=== PATIENT | male | born 1935 | race Caucasian/White ===

== ENCOUNTER → 2024-02-13 11:00 | Outpatient (REF) | payer MEDICARE, OTHER, SELFPAY ==
[2024-02-13 12:36] LABS: % Basophils 0.5 % (0-2); % Eosinophils 1.3 % (0-6); % Immature Granulocytes 0.2 % (0-0.5); % Lymphocytes 16.9 % (20.5-51.1); % Monocytes 10.6 % (1.7-9.3); % Neutrophils 70.5 % (42.2-75.2); Absolute Eosinophils 0.1 10^3/uL (0-0.7); Absolute Lymphocytes 0.9 10^3/uL (1.2-3.4); Absolute Monocytes 0.6 10^3/uL (0.1-0.6); Absolute Neutrophils 3.9 10^3/uL (1.4-6.5); Hematocrit 38.7 % (39.0-52.0); Mean Corp Hgb Conc. 33.6 g/dL (33.0-37.0); Mean Corpuscular Hgb 31.5 pg (27.0-31.0); Mean Corpuscular Volume 93.7 fL (80.0-94.0); Mean Platelet Volume 9.2 fL (7.4-10.4); Nucleated Red Blood Cells % 0 % (-); Platelet Count 165 10^3/uL (130-400); Red Blood Cell Count 4.13 10^6/uL (4.70-6.10); Red Cell Dist. Width 13.1 % (11.5-14.5); White Blood Cell Count 5.6 10^3/uL (4.8-10.8)
[2024-02-13 12:37] LABS: Urine Albumin Negative (Neg - Trace); Urine Bilirubin Negative (Negative); Urine Character Clear (Clear); Urine Color Yellow; Urine Glucose Negative (Negative); Urine Ketone Negative (Negative); Urine Leukocyte Trace (Negative); Urine Nitrite Negative (Negative); Urine Occult Blood Negative (Negative); Urine Urobilinogen Negative (Neg - 1+)
[2024-02-13 12:48] LABS: Glycohemoglobin (HgbA1c) 6.2 % (4.0-5.6)
[2024-02-13 13:16] LABS: ALT (SGPT) 25 U/L (0-50); AST (SGOT) 33 U/L (17-59); Albumin 4.3 g/dl (3.5-5.0); Alkaline Phosphatase 53 U/L (38-126); Blood Urea Nitrogen 19 mg/dl (9-20); Calcium 9.6 mg/dl (8.4-10.2); Carbon Dioxide 27 mmol/L (22-30); Chloride 99 mmol/L (98-107); Glucose 92 mg/dl (70-99); HDL Cholesterol 78 mg/dl; Iron 139 ug/dl (49-181); LDL Cholesterol, Calculated 74 mg/dl; Potassium 4.8 mmol/L (3.5-5.1); Sodium 136 mmol/L (135-145); Total Bilirubin 0.7 mg/dl (0.2-1.3); Total Cholesterol 170 mg/dl (50-199); Total Protein 6.6 g/dl (6.3-8.2); Triglyceride 92 mg/dl (10-149); Very Low Density Lipoprotein 18 mg/dl (0-30); eGFR > 60.00
[2024-02-13 13:25] LABS: Percent Saturation 50 % (20-50); Total Iron Binding Capacity 277 ug/dl (261-462)
[2024-02-13 14:05] LABS: Vitamin B12 983 pg/ml (239-931)
[2024-02-13 14:52] LABS: Urine Red Blood Cell 0-2 /HPF (0-2)
[2024-02-13 14:53] LABS: Urine White Cell 21-25 /HPF (0-5)
[2024-02-13 14:54] LABS: Urine Bacteria Few (Negative)
== END ==
LOC: HWLAB 11:00
PROVIDERS: ATTENDING PHYSICIAN Student in an Organized Health Care Education/Training Program
DX: K21.9 Gastro-esophageal reflux disease without esophagitis (principal); E78.00 Pure hypercholesterolemia, unspecified; G62.9 Polyneuropathy, unspecified; E53.8 Deficiency of other specified B group vitamins; R73.03 Prediabetes; Z86.39 Personal history of other endocrine, nutritional and metabolic disease; R35.0 Frequency of micturition; N40.1 Benign prostatic hyperplasia with lower urinary tract symptoms
CPT/HCPCS: 36415; 80053; 80061; 81003; 81015; 82607; 82728; 83036; 83540; 83550; 85025; 87077; 87086; 87186

== ENCOUNTER 2024-06-20 23:42 | Observation (INO) | payer MEDICARE, OTHER, SELFPAY ==
[2024-06-20 20:57] VITALS: BP 125/61
[2024-06-20 21:00] VITALS: BP 136/59
[2024-06-20 21:03] VITALS: BP 136/59
[2024-06-20 21:06] VITALS: BMI 25.8
--- NOTE | 2024-06-20 21:24 | ED.GENMED ---
History of Present Illness
General
Chief Complaint: Fall
Source: patient
Exam Limitations: none
Time Seen by Provider: 06/20/24 21:05
History of Present Illness
History of Present Illness:
This is a 88 year old male that comes in by ambulance with c/o Falls. States that he has a history of balance issues. States that he just runs out of strength. States that he feel twice today and it is more a graceful collapse. States that he went
down on his knee's. States that he did not hit his head or have any LOC. States that he does use a walker. Denies any fever, chills, chest pain. SOB, abd pain, nausea, vomiting, diarrhea, headache, dizziness, urinary burning.
Past History
Past History
ED Past Medical History: Cancer (Skin CA), GERD, Hypercholesterolemia and Other (Difficulty with balance, )
ED Past Surgical History: Tonsilectomy and Urological (Vasectomy)
Social History
Tobacco: Non-smoker
Alcohol: Daily ([place] (2-3 oz whiskey) )
Personal:
Living: with family
Review of Systems
Review of Systems
All Other Systems: ROS reviewed and negative except as documented in HPI and ROS
Constitutional: Reports no symptoms; Denies fever or chills
EENT: Reports no symptoms
Respiratory: Reports no symptoms; Denies cough or trouble breathing
Cardiac: Reports no symptoms; Denies chest pain
ABD/GI: Reports no symptoms; Denies abdominal pain, nausea, vomiting or diarrhea
: Reports no symptoms; Denies dysuria, frequency or urgency
Musculoskeletal: Reports no symptoms
Skin: Reports no symptoms
Neurological: Reports no symptoms; Denies dizzy or headache
Psychiatric: Reports no symptoms
Phy Exam
General Physical Exam
General Presentation: well appearing and no apparent distress
General age: appears stated age
General Skin: warm and dry
General Habitus: elderly
General Mental: alert
General Hydration: appears well hydrated
ENT Exam
ENT Exam: TM's normal, pharynx normal and neck supple
Eye Exam
Eye Exam: EOMI
Cardiovascular Exam
Cardiovascular Exam: regular rate/rhythm, no edema and normal peripheral pulses
Pulmonary Exam
Pulmonary Exam: lungs clear, no respiratory distress, no rales, chest non tender, no crackles, no rhonchi, no wheezing and no cough
Gastrointestinal Exam
Gastrointestinal Exam: normal bowel sounds, non tender, soft, no organomegaly, no pulsatile mass and non distended
Musculoskeletal Exam
Musculoskeletal Exam: full ROM, no edema and other (Negative for any cervical neck tenderness or shoulder tenderness. Patient can cross over, Flex elbows, abduct arms move fingers and wrist without discomfort. Negative discomfort with Knee flexion,
inversion or eversion. )
Skin Exam
Skin Exam: normal color, warm/dry, no petechia and other (Bilateral knee abrasions. Negative for tenderness, abrasion noted on the left cheek and left shoulder)
Psychiatric Exam
Psychiatric Exam: normal mood/affect
Course
Orders/Labs/Results
Orders:
Orders
06/20/24 21:23
Electrocardiogram (*1) Urgent
Reason for Study: Fatigue / Weakness
CT Head W/o Iv Contrast Urgent
Comment:
Reason For Exam: Frequent FALLS,
EKG- Treatment ONCE
06/20/24 21:24
0.9% Sodium Chloride 500 ml [Nss] 500 ml IV BOLUS
06/20/24 21:43
Alcohol Urgent
Complete Blood Count/With Diff Urgent
Comprehensive Metabolic Panel Urgent
Troponin I Urgent
06/20/24 22:35
Urinalysis Reflex To Culture Urgent
Date Specimen was Collected: 06/20/24
Time Specimen was Collected: 22:25
Abnormal Lab Results
06/20/24
21:43
RBC 4.01 L 10^6/uL
(4.70-6.10)
Hgb 12.9 L g/dL
(13.0-18.0)
Hct 37.2 L %
(39.0-52.0)
MCH 32.2 H pg
(27.0-31.0)
Absolute Lymphs (auto) 0.9 L 10^3/uL
(1.2-3.4)
Lymphocytes % 16.5 L %
(20.5-51.1)
06/20/24 21:43
06/20/24 21:43
H/H slightly low. Otherwise normal labs. Troponin 0.020, Alcohol 30, Urine negative for infection.
Vital Signs
Initial and Last Documented VS:
Initial Vital Signs
BP
125/61
06/20/24 20:57
Last Documented Vital Signs
Temp Pulse Resp BP Pulse Ox
98.3 F 64 18 136/59 94
06/20/24 21:03 06/20/24 21:03 06/20/24 21:03 06/20/24 21:03 06/20/24 21:03
MDM/Problems Addressed
Differential Diagnosis Includes:
Balance issues, UTI
MDM/Problems Addressed:
This is a 88 year old male that comes in with c/o falling. States that he has fallen twice today and he just can't get up. States that since the ambulance had to come twice they brought him in. Patient states that this is a graceful collapse.
Will check labs, Urine CT head.
Back into see patient. Explained taht his blood work is normal but he does have some alcohol on board. Patient urine is negative for infection. Attempted to get patient OOB to see if he could walk. Patient unable to walk . Placed back in bed and
will admit. Hospitalist notified.
Chronic conditions affecting care:
Balance problems.
Acute Exacerbation and/or Progression of Chronic Illness:
Balance problems.
*Radiology
Radiology exam reviewed: radiology read reviewed (CT head-No evidence of acute intracranial abnormality. )
*Pulse Oximetry
Patient hypoxic: no
*Creative Services Coordinator Interpretation
Rate: Creative Services Coordinator- N/A
*Critical Care Note
Total Time (30-74mins, 75-104mins- exclusive of procedures): Not Applicable
ED Attending Note
-
Portions of this chart may have been created with voice recognition software.� Occasional wrong word or��sound alike� substitutions may have occurred due to the inherent limitations of voice recognition software.
Discharge Plan
Departure
Patient Disposition: Admit
Date of Disposition: 06/20/24
Time of Disposition: :23
Admit to: Med/Surg
Presentation/result/management discussed w/ accepting MD/DO: Hospitalist
Patient with high blood pressure during this ER visit?: Yes
Condition: Good
Discharge Problem:
Frequent falls, Ambulatory dysfunction
Prescriptions:
No Action
simvastatin 20 MG tablet
20 mg PO DAILY
coenzyme [id number] E 1 CAP capsule
1 cap PO DAILY
acetaminophen 325 MG tablet
650 mg PO Q4HPRN PRN (Reason: mild pain/MCCLURE/temp> 100.4F) 0RF
magnesium hydroxide 30 ML suspension
30 ml PO [id number] PRN (Reason: constipation) 0RF
aspirin 325 MG tablet,delayed release (DR/EC)
325 mg PO DAILY Qty: 30 0RF
Rx Instructions:
One daily for 1 month to prevent bloos clots
alum-mag hydroxide-simeth [Mag-Al Plus] 30 ML suspension
30 ml PO Q4HPRN PRN (Reason: indigestion) 0RF
oxycodone 5 MG tablet
5 mg PO Q4HPRN PRN (Reason: mild pain) Qty: 30 0RF
Rx Instructions:
1 every 4 hours as needed for pain
Sent to [facility]
celecoxib [Celebrex] 100 MG capsule
200 mg PO DAILY PRN (Reason: mild pain) Qty: 30 0RF
Rx Instructions:
One daily for pain as needed
Sent to [facility]
Referrals:
Elizabeth Barrera MD [Family Provider] -
Interventions
Interventions:
*Risk Screen - Suicide Last Done: 06/20/24 21:04
*General Assessment Last Done: 06/20/24 21:04
*Neglect/Abuse Screening Last Done: 06/20/24 21:04
ED-Musculoskeletal Assessment Last Done: 06/20/24 21:05
ED- Neurological Assessment Last Done: 06/20/24 21:05
ED-Skin Assessment Last Done: 06/20/24 21:05
Discharge Date and Time
Print Language: SOUTH SUDANESE
[2024-06-20] MEDS: NSS 500 IV (21:45)
[2024-06-20 21:46] VITALS: BP 143/70
[2024-06-20 21:52] LABS: % Basophils 0.7 % (0-2); % Eosinophils 1.5 % (0-6); % Immature Granulocytes 0.2 % (0-0.5); % Lymphocytes 16.5 % (20.5-51.1); % Monocytes 9.2 % (1.7-9.3); % Neutrophils 71.9 % (42.2-75.2); Absolute Eosinophils 0.1 10^3/uL (0-0.7); Absolute Lymphocytes 0.9 10^3/uL (1.2-3.4); Absolute Monocytes 0.5 10^3/uL (0.1-0.6); Absolute Neutrophils 3.8 10^3/uL (1.4-6.5); Hematocrit 37.2 % (39.0-52.0); Hemoglobin 12.9 g/dL (13.0-18.0); Mean Corp Hgb Conc. 34.7 g/dL (33.0-37.0); Mean Corpuscular Hgb 32.2 pg (27.0-31.0); Mean Corpuscular Volume 92.8 fL (80.0-94.0); Nucleated Red Blood Cells % 0 % (-); Platelet Count 149 10^3/uL (130-400); Red Blood Cell Count 4.01 10^6/uL (4.70-6.10); Red Cell Dist. Width 12.9 % (11.5-14.5); White Blood Cell Count 5.3 10^3/uL (4.8-10.8)
[2024-06-20 22:00] VITALS: BP 169/73
[2024-06-20 22:07] LABS: ALT (SGPT) 26 U/L (0-50); AST (SGOT) 35 U/L (17-59); Albumin 4.3 g/dl (3.5-5.0); Alcohol 30 mg/dl; Alkaline Phosphatase 56 U/L (38-126); Blood Urea Nitrogen 17 mg/dl (9-20); Calcium 9.4 mg/dl (8.4-10.2); Carbon Dioxide 25 mmol/L (22-30); Chloride 101 mmol/L (98-107); Estimated Creatinine Clearance 67 ml/min; Glucose 87 mg/dl (70-99); Sodium 138 mmol/L (135-145); Total Bilirubin 0.5 mg/dl (0.2-1.3); Total Protein 6.3 g/dl (6.3-8.2); eGFR > 60.00
[2024-06-20 22:42] LABS: Urine Albumin Negative (Neg - Trace); Urine Bilirubin Negative (Negative); Urine Character Clear (Clear); Urine Color Yellow; Urine Glucose Negative (Negative); Urine Ketone Negative (Negative); Urine Leukocyte Negative (Negative); Urine Nitrite Negative (Negative); Urine Occult Blood Negative (Negative); Urine Urobilinogen Negative (Neg - 1+)
[2024-06-20 23:00] VITALS: BP 133/57
--- NOTE | 2024-06-20 23:42 | HPS.HSE ---
Family Physician
-
Family Physician: Elizabeth Barrera MD
Chief Complaint
-
Frequent Falls
History of Present Illness
Patient is a 88 y/o male past medical history of chronic ambulatory dysfunction with frequent falls, and peripheral neuropathy who presents following two falls today. Patient reports he uses a walker to ambulate at baseline. He has fallen several
times over the past year, but today patient fell twice today and had to call EMS both times to get him off the ground prompting EMS to bring him to the emergency department for evaluation. Patient reports chronic lower extremity weakness and
neuropathy which is unchanged. He reports chronic urinary incontinence for the past several years. He denies any injury during today's fall. He denies chest pain, palpitiaton, shortness of breath or dizziness.
Medical History
Past Medical History
Past Medical History: Reports Other
Additional Past Medical History:
Ambulatory Dysfunction with Frequent Falls
Peripheral Neuropathy
GERD
BPH
Hyperlipidemia
Past Surgical History: Reports Other
Additional Past Surgical History:
Vasectomy
Tonsillectomy
Social History
Tobacco: Non-smoker
Alcohol: Daily (3 oz of whiskey nightly)
Personal:
Living: With Family
Family History
Family History: Not pertinent
Allergies / Home Medications
Allergies reflects when Allergies were last updated in [employer]
Home Medications with original date entered in [employer]
Allergy/Medication List:
Allergies
Allergy/AdvReac Type Severity Reaction Status Date / Time
No Known Allergies Allergy Verified 06/20/24 21:34
Home Medications
simvastatin 20 mg tablet 20 mg PO HS High cholesterol 07/30/20
famotidine 20 mg tablet (Pepcid) 20 mg PO DAILYPRN PRN stomach issues 06/20/24
ferrous sulfate 325 mg (65 mg iron) tablet 325 mg PO DAILY 06/20/24
finasteride 5 mg tablet 5 mg PO DAILY 06/20/24
tamsulosin 0.4 mg capsule 0.4 mg PO BID 06/20/24
vit C 250 mg-vit E 90 mg-zinc 40 mg-copper 1 [id number]-[id number] capsule (PreserVision AREDS-2) 1 tab PO BID 06/20/24
Review of Systems
-
A 12 point ROS was completed and negative except as noted: Yes
Constitutional: Denies Fever or Chills
Respiratory: Denies Cough or Trouble Breathing
Cardiac: Denies Chest Pain or Palpitations
Physical Exam
Vital Signs
Vital Signs
Temp Pulse Resp BP Pulse Ox
98.3 F 64 18 136/59 94
06/20/24 21:03 06/20/24 21:03 06/20/24 21:03 06/20/24 21:03 06/20/24 21:03
Physical Exam
General: Comfortable and Conversant
HEENT: Anicteric and Moist mucous membranes
Respiratory: Clear and Non Labored Respirations
Cardiac: S1/S2 and Regular Rhythm
GI: Soft and Non Tender
Rectal: Deferred by Provider
Musculoskeletal: No Clubbing, No Cyanosis, No Edema and Other (5/5 Strength bilateral lower extremities)
Skin: Warm and Dry
Neuro: Awake, Alert, Oriented and Nonfocal/grossly intact
Psych: Calm
Laboratory Results
-
06/20/24 21:43
06/20/24 21:43
Laboratory Results
Total Bilirubin 0.5 mg/dl (0.2-1.3) 06/20/24 21:43
AST 35 U/L (17-59) 06/20/24 21:43
ALT 26 U/L (0-50) 06/20/24 21:43
Alkaline Phosphatase 56 U/L (38-126) 06/20/24 21:43
Troponin I 0.020 ng/ml 06/20/24 21:43
Data Reviewed
-
Lab Data: Labs Reviewed by me
Impression/Plan
-
Ambulatory Dysfunction with Frequent Falls
-Consult PT/OT
Peripheral Neuropathy
-Stable
BPH
-Continue tamsulosin and finasteride
Hyperlipidemia
-Continue statin
DVT Proph: SCDs
Code Status: Full Code
--- NOTE | 2024-06-20 23:45 | W.PN.UPDATE ---
Update Note
Progress Note Update
This is an addendum to the H&P written by Yeimi Brown on 06/20/2024. Patient seen and examined independently with PA.
88-year-old male past medical history of chronic ambulatory dysfunction with frequent falls, hyperlipidemia, BPH, GERD, presenting with 2 falls today and was unable to get up. No injuries or pain anywhere. No syncope or chest pain or shortness of
breath.
CT head negative for acute abnormality.
PT/OT.
[2024-06-21 02:12] VITALS: BP 136/61
[2024-06-21 07:54] VITALS: BP 127/84
[2024-06-21] MEDS: FLOMAX 0.4 MG PO ×2 (08:30→19:42)
[2024-06-21] MEDS: FEOSOL 325 MG PO (08:30)
[2024-06-21] MEDS: PROSCAR 5 MG PO (08:30)
--- NOTE | 2024-06-21 11:35 | W.PN.HOSP.TC ---
Today's Communication/Plan
-
PT/OT evaluation
possible need of rehab placement
Assessment / Plan
Assessment / Plan
Ambulatory Dysfunction with Frequent Falls
-legs giving out. no dizziness/syncope.
-CT head neg
-some left hip pain, exam benign, if painful with activity will need xr vs CT of the hip
-PT/OT evaluation and possible need for rehab placement
Peripheral Neuropathy
-Stable, not on any lyrica/gabapentin
BPH
-Continue tamsulosin and finasteride
Hyperlipidemia
-Continue statin
DVT Proph: SCDs
Code Status: Full Code
Discussed dispo plan with CM
Anticipated Discharge: 24 - 48 hours
Subjective/Interval History
-
Date of Service: June 21, 2024
resting comfortably in bed
some left hip pain
Objective Data
-
Vital Signs:
Vital Signs
Temp Pulse Resp BP Pulse Ox
97.6 F 56 18 127/84 97
06/21/24 07:54 06/21/24 07:54 06/21/24 07:54 06/21/24 07:54 06/21/24 07:54
Review of Systems
-
Respiratory: Reports No Symptoms
Cardiac: Reports No Symptoms
Abdomen/GI: Reports No Symptoms
Physical Exam
-
General: Obese; Negative Appears in Distress
HEENT: Negative Oxygen
Respiratory: Clear to Auscultation
Cardiac: Regular Rhythm and S1/S2; Negative Murmur
GI: Soft and Nontender
Musculoskeletal: Other (Normal left hip exam)
Neuro: Awake, Alert, Oriented and No Motor Deficits
--- NOTE | 2024-06-21 11:36 | CM ---
Patient seen bedside, initial assessment completed. Patient resides with his and cat in a ranch style home, one step to enter (around the back of home). Patient reports he uses a walker all the time, has a wheelchair if needed. Patient reports
[facility] in past, [facility] outpatient therapy in past, denies SNF. Patient reports he has a son, Denis, who lives in [place], daughter, Gabriela, who lives about 2.5 hours away. Patient reports he and his have started to discuss/ look into [facility] and
[facility]. Patient confirms PCP Elizabeth Barrera, pharmacy [facility] in [place], confirms prescription coverage. Patient denies food, housing/utility, transportation insecurities at home. PEDERSEN reviewed, signed, placed in chart. CM will
continue to follow for all discharge planning needs, will watch for PT/OT recommendations.
Plan; SNF likely, watch PT/OT evals.
[2024-06-21 12:25] VITALS: BP 132/63; PULSE 61; O2SAT 97
[2024-06-21 15:28] VITALS: BP 137/55
[2024-06-21 15:42] VITALS: BP 134/65; BP 148/62; BP 150/68; PULSE 60; PULSE 64; PULSE 68
[2024-06-21] MEDS: LIPITOR 10 MG PO (17:12)
[2024-06-21] MEDS: PEPCID 20 MG PO (22:15)
[2024-06-21 23:00] VITALS: BP 149/72
[2024-06-22 07:50] VITALS: BP 149/58
[2024-06-22] MEDS: PROSCAR 5 MG PO (08:19)
[2024-06-22] MEDS: FEOSOL 325 MG PO (08:19)
[2024-06-22] MEDS: FLOMAX 0.4 MG PO ×2 (08:19→19:19)
[2024-06-22 08:44] VITALS: BP 116/54; BP 127/79; BP 148/60; PULSE 65; PULSE 71; PULSE 73
[2024-06-22 09:21] LABS: Hematocrit 39.5 % (39.0-52.0); Hemoglobin 13.6 g/dL (13.0-18.0); Mean Corp Hgb Conc. 34.4 g/dL (33.0-37.0); Mean Corpuscular Hgb 32.3 pg (27.0-31.0); Mean Corpuscular Volume 93.8 fL (80.0-94.0); Mean Platelet Volume 9.2 fL (7.4-10.4); Platelet Count 152 10^3/uL (130-400); Red Blood Cell Count 4.21 10^6/uL (4.70-6.10); Red Cell Dist. Width 13.2 % (11.5-14.5); White Blood Cell Count 5.1 10^3/uL (4.8-10.8)
--- NOTE | 2024-06-22 09:21 | W.PN.HOSP.TC ---
Today's Communication/Plan
-
Provide laxatives
Rehab placement
Assessment / Plan
Assessment / Plan
Ambulatory Dysfunction with Frequent Falls
-legs giving out. no dizziness/syncope.
-CT head neg
-some left hip pain, exam benign, if painful with activity will need xr vs CT of the hip
-PT/OT evaluation and possible need for rehab placement
Peripheral Neuropathy
-Stable, not on any lyrica/gabapentin
BPH
-Continue tamsulosin and finasteride
Hyperlipidemia
-Continue statin
Constipation
-abd distended and tight
-last BM 3 days back
-provide miralax and dulcolax dose
DVT Proph: SCDs
Code Status: Full Code
Discussed dispo plan with CM
Anticipated Discharge: Within 24 hours
Subjective/Interval History
-
Date of Service: June 22, 2024
Sitting comfortably in chair
Hemoglobin evaluate for last 2 3 days
denies any nausea vomiting, abdominal discomfort
Objective Data
-
Labs:
Laboratory Results
06/22/24
08:38
WBC Pending
Hgb Pending
Hct Pending
Plt Count Pending
Sodium Pending
Potassium Pending
Chloride Pending
Carbon Dioxide Pending
BUN Pending
Creatinine Pending
Glucose Pending
Calcium Pending
Vital Signs:
Vital Signs
Temp Pulse Resp BP Pulse Ox
98.1 F 54 18 149/58 95
06/22/24 07:50 06/22/24 07:50 06/22/24 07:50 06/22/24 07:50 06/22/24 07:50
I&O
06/21/24 06/22/24 06/23/24
06:59 06:59 06:59
Intake Total 1080 / 1080
Output Total 1100 / 1100
Balance -20 / -20
Review of Systems
-
Respiratory: Reports No Symptoms
Cardiac: Reports No Symptoms
Abdomen/GI: Reports Constipated; Denies Abdominal Pain, Nausea or Vomiting
Physical Exam
-
General: Obese; Negative Appears in Distress
HEENT: Negative Oxygen
Respiratory: Clear to Auscultation
Cardiac: Regular Rhythm and S1/S2; Negative Murmur
GI: Soft and Nontender
Musculoskeletal: Other (Normal left hip exam)
Neuro: Awake, Alert, Oriented and No Motor Deficits
[2024-06-22 09:30] LABS: Blood Urea Nitrogen 20 mg/dl (9-20); Calcium 9.2 mg/dl (8.4-10.2); Carbon Dioxide 23 mmol/L (22-30); Chloride 103 mmol/L (98-107); Estimated Creatinine Clearance 54 ml/min; Glucose 152 mg/dl (70-99); Potassium 4.4 mmol/L (3.5-5.1); Sodium 139 mmol/L (135-145); eGFR > 60.00
[2024-06-22] MEDS: DULCOLAX 10 MG PO (10:19)
[2024-06-22] MEDS: MIRALAX 17 GRAMS PO (10:19)
[2024-06-22 15:40] VITALS: BP 146/61
[2024-06-22] MEDS: LIPITOR 10 MG PO (16:40)
[2024-06-22 23:18] VITALS: BP 153/74
[2024-06-23] MEDS: PROSCAR 5 MG PO (07:37)
[2024-06-23] MEDS: FLOMAX 0.4 MG PO (07:37)
[2024-06-23] MEDS: MIRALAX PO (07:39)
[2024-06-23 07:49] VITALS: BP 95/71
[2024-06-23 07:59] LABS: Hematocrit 38.1 % (39.0-52.0); Hemoglobin 13.2 g/dL (13.0-18.0); Mean Corp Hgb Conc. 34.6 g/dL (33.0-37.0); Mean Corpuscular Hgb 31.6 pg (27.0-31.0); Mean Corpuscular Volume 91.1 fL (80.0-94.0); Mean Platelet Volume 9.4 fL (7.4-10.4); Platelet Count 170 10^3/uL (130-400); Red Blood Cell Count 4.18 10^6/uL (4.70-6.10); Red Cell Dist. Width 13.1 % (11.5-14.5); White Blood Cell Count 5.1 10^3/uL (4.8-10.8)
[2024-06-23 08:29] LABS: Blood Urea Nitrogen 16 mg/dl (9-20); Calcium 9.5 mg/dl (8.4-10.2); Carbon Dioxide 28 mmol/L (22-30); Chloride 102 mmol/L (98-107); Estimated Creatinine Clearance 67 ml/min; Glucose 98 mg/dl (70-99); Potassium 4.5 mmol/L (3.5-5.1); Sodium 140 mmol/L (135-145); eGFR > 60.00
--- NOTE | 2024-06-23 08:40 | W.PN.HOSP.TC ---
Today's Communication/Plan
-
Discharge today
Assessment / Plan
Assessment / Plan
Physical Exam
General: Not in acute distress
HEENT: Normocephalic
Respiratory: Clear to Auscultation Bilaterally
Cardiac: Regular Rhythm and S1/S2
GI: Soft and Nontender. Positive bowel sounds.
Musculoskeletal: Other (Normal left hip exam)
Neuro: Awake, Alert, Oriented and No Motor Deficits
Assessment/Plan
[address] -generalized weakness/mechanical fall -PT OT and rehab placement
Ambulatory Dysfunction with Frequent Falls
-legs giving out. no dizziness/syncope.
-CT head neg
-some left hip pain, exam benign
-PT/OT evaluation and possible need for rehab placement
Peripheral Neuropathy
-Stable, not on any lyrica/gabapentin
BPH
-Continue tamsulosin and finasteride
Hyperlipidemia
-Continue statin
Constipation
-abd distended and tight
-last BM 3 days back
-provide miralax and dulcolax dose
DVT Proph: SCDs
Code Status: Full Code
Discussed dispo plan with CM
Patient needs SNF because he is a [employer] waiver patient.
More than 30 minutes spent in discharge including
Final examination of the patient
Summarizing hospital stay
Instructions for continuing care to all relevant caregivers
Preparation of discharge records, prescriptions, and referral forms
Total time spent (in minutes): 40
Anticipated Discharge: Today
Subjective/Interval History
-
Date of Service: June 23, 2024
Patient was seen and examined. He denied any new symptoms or complaints.
Objective Data
-
Labs:
Laboratory Results
06/23/24
07:20
WBC 5.1
Hgb 13.2
Hct 38.1 L
Plt Count 170
Sodium 140
Potassium 4.5
Chloride 102
Carbon Dioxide 28
BUN 16
Creatinine 0.8
Glucose 98
Calcium 9.5
Vital Signs:
Vital Signs
Temp Pulse Resp BP Pulse Ox
98.3 F 72 18 95/71 95
06/23/24 07:49 06/23/24 07:49 06/23/24 07:49 06/23/24 07:49 06/23/24 07:49
I&O
06/22/24 06/23/24 06/24/24
06:59 06:59 06:59
Intake Total 1080 / 1080 1320 / 1320
Output Total 1100 / 1100 1200 / 1200
Balance -20 / -20 120 / 120
[2024-06-23 11:49] VITALS: BP 140/65
[2024-06-23 13:16] VITALS: BP 113/57; BP 129/65; PULSE 63; O2SAT 98
--- NOTE | 2024-06-23 14:35 | CM ---
Addendum entered by Tarah Ortega 06/23/24 15:01:
Approved for the Medicare Shared Savings Program.
Patient agreed to wheelchair van.
Original Note:
Patient seen at bedside. Observation.
PT recommending SNF
Spoke to & patient regarding [facility] participating SNF's.
Referrals to [facility], [facility] & [facility] placed in care port.
Spoke with Argelia who states bed available today at [facility].
tt to Adilene Blackwood ([facility] liaion) & tt to Dr. Bull.
Covid test ordered as it is protocol for [facility].
PLAN: Discharge for [facility] SNF.
[facility]
REPORT #: [phone]
FAX #: [phone]
--- NOTE | 2024-06-23 14:38 | W.DS.TRANS ---
DC Summary - [facility] Attendant
-
Discharge Instructions:
Discharge Diagnosis/Procedures Ambulatory Dysfunction with Frequent Falls
Peripheral Neuropathy
BPH
Hyperlipidemia
Constipation
Diet As tolerated
Activity As tolerated
Driving Restrictions No driving
Other Services PT,OT
Instructions:
Stand-Alone Forms:
Changes to Home Medications: Yes
Discharge Medications:
DC Medications w/original date entered in [employer]
simvastatin 20 mg tablet 20 mg PO HS High cholesterol 07/30/20
famotidine 20 mg tablet (Pepcid) 20 mg PO DAILYPRN PRN stomach issues 06/20/24
ferrous sulfate 325 mg (65 mg iron) tablet 325 mg PO DAILY Supplement 06/20/24
finasteride 5 mg tablet 5 mg PO DAILY Urinary Issue 06/20/24
tamsulosin 0.4 mg capsule 0.4 mg PO BID Urinary Issue 06/20/24
vit C 250 mg-vit E 90 mg-zinc 40 mg-copper 1 [id number] capsule (PreserVision AREDS-2) 1 tab PO BID Supplement 06/20/24
polyethylene glycol 3350 17 gram oral powder packet (HealthyLax) 17 g PO DAILY #30 ea 06/23/24
Home Medication Changes
HealthyLax is a new medication.
Ferrous Sulfate on hold for now in the setting of constipation. Recheck iron studies and resume as appropriate outpatient.
Pending Results: No
Total time spent discharging patient (in min): 40
[2024-06-23 14:39] VITALS: BP 132/56; PULSE 56; O2SAT 98
[2024-06-23 14:50] LABS: COVID-19 Antigen Negative (Negative)
[2024-06-23 15:04] VITALS: BP 132/56
--- NOTE | 2024-06-25 18:24 | W.DCSUMMARY ---
Discharge Summary
Discharge Data
Date of Admission: 06/20/24
Date of Discharge: 06/23/24
Total time spent discharging patient (in min): 40
-
Pending Results: No
Hospital Course
88-year-old male past medical history of chronic ambulatory dysfunction with frequent falls, hyperlipidemia, BPH, GERD, presented with 2 falls (on the day of presentation) and was unable to get up. No injuries or pain anywhere. No syncope or chest
pain or shortness of breath. CT head was negative for acute abnormality. Physical Therapy was ordered and laxatives ordered for constipation. Patient was stable for discharge to SNF.
Discharge Plan
-
Patient Disposition: Residential/SNF
Discharge Diagnosis/Procedures: Ambulatory Dysfunction with Frequent Falls
Peripheral Neuropathy
BPH
Hyperlipidemia
Constipation
Condition: Fair
Diet: As tolerated
Activity: As tolerated
Driving Restrictions: No driving
Other Services: PT and OT
Referrals:
Elizabeth Barrera MD [Family Provider] - in less than 1 week
Additional Discharge Medication Instructions: HealthyLax is a new medication.
Ferrous Sulfate on hold for now in the setting of constipation. Recheck iron studies and resume as appropriate outpatient.
Prescriptions:
New
polyethylene glycol 3350 [HealthyLax] 17 gram Powder In Packet
17 g PO DAILY Qty: 30 0RF
Continued
simvastatin 20 MG tablet
20 mg PO HS
famotidine [Pepcid] 20 mg Tablet
20 mg PO DAILYPRN PRN (Reason: stomach issues)
tamsulosin 0.4 mg Capsule
0.4 mg PO BID
finasteride 5 mg Tablet
5 mg PO DAILY
PreserVision AREDS-2 250-90-40-1 mg Capsule
1 tab PO BID
Held
ferrous sulfate 325 mg (65 mg iron) Tablet
325 mg PO DAILY
Hold Instructions: Resume on 06/27/24. Check with outpatient doctor regarding if and when to resume this medication.
Discharge Orders:
Discharge Patient (As Directed); Ordered 06/23/24
Ordered By: Harmeet Bull
Discharge Date and Time
Discharge Date/Time: 06/23/24 16:00
Print Language: [place]
== END 2024-06-23 16:00 ==
LOC: 4 WEST ACU 23:42
PROVIDERS: Clinical Nurse Specialist Family Health; Hospitalist; ADMITTING PHYSICIAN Hospitalist; ATTENDING PHYSICIAN Hospitalist; EMERGENCY PHYSICIAN Emergency Medicine; FAMILY PHYSICIAN Student in an Organized Health Care Education/Training Program
DX: R42 Dizziness and giddiness (principal); R29.6 Repeated falls; R51.9 Headache, unspecified; R06.02 Shortness of breath; R10.9 Unspecified abdominal pain; R19.7 Diarrhea, unspecified; R11.2 Nausea with vomiting, unspecified; E78.00 Pure hypercholesterolemia, unspecified; K21.9 Gastro-esophageal reflux disease without esophagitis; R30.9 Painful micturition, unspecified; M25.552 Pain in left hip; R53.83 Other fatigue; R14.0 Abdominal distension (gaseous); R53.1 Weakness; G62.9 Polyneuropathy, unspecified; W18.39XA Other fall on same level, initial encounter; Y93.01 Activity, walking, marching and hiking; Y92.9 Unspecified place or not applicable; R32 Unspecified urinary incontinence; N40.1 Benign prostatic hyperplasia with lower urinary tract symptoms; R00.1 Bradycardia, unspecified; K59.00 Constipation, unspecified; Z91.81 History of falling; Z85.828 Personal history of other malignant neoplasm of skin; Z11.52 Encounter for screening for COVID-19
CPT/HCPCS: 70450; 80048; 80053; 81003; 82077; 84484; 85025; 85027; 87811; 93005; 96360; 97116; 97162; 97167; 97530; 97535; 99285; G0378

== ENCOUNTER → 2024-07-18 07:14 | Outpatient (REF) | payer MEDICARE, OTHER, SELFPAY ==
[2024-07-18 08:31] LABS: Magnesium 2.2 mg/dl (1.6-2.3); Potassium 4.2 mmol/L (3.5-5.1)
== END ==
LOC: OLABLV 07:14
PROVIDERS: ATTENDING PHYSICIAN Student in an Organized Health Care Education/Training Program
DX: N40.0 Benign prostatic hyperplasia without lower urinary tract symptoms (principal)
CPT/HCPCS: 36415; 83735; 84132

== ENCOUNTER → 2024-07-28 13:25 | Outpatient (REF) | payer MEDICARE, OTHER, SELFPAY | LOC: MRI 3T 13:25 | PROVIDERS: ATTENDING PHYSICIAN Family Medicine; FAMILY PHYSICIAN Student in an Organized Health Care Education/Training Program | DX: G91.9 Hydrocephalus, unspecified (principal) | CPT/HCPCS: 70551 ==